=== PATIENT | male | born 1960 | race African-American/Black ===

== ENCOUNTER 2024-01-08 20:42 | Emergency (ER) | payer BC, OTHER ==
[~2024-01-08] VITALS: Ht 177.8 cm; Wt 72.6 kg
[2024-01-08 21:04] VITALS: BP 113/73; PULSE 99; RESP 14; TEMP 98.6; O2SAT 99
[2024-01-08] MEDS ORDERED: HYDROCODONE/ACETAMINOPHEN 5/325MG TABLET PO ONE (21:45)
== END 2024-01-08 23:00 | disposition left against medical advice (07) ==
LOC: ER 20:42
DX: M79.605 Pain in left leg (principal)
CPT/HCPCS: 99283